=== PATIENT | male | born 1975 | race African-American/Black ===

== ENCOUNTER 2017-04-18 11:51 | Emergency (ER) | payer MEDICAID, OTHER ==
[~2017-04-18] VITALS: Ht 190.5 cm; Wt 109.0 kg
[2017-04-19 03:45] VITALS: BP 137/89
== END 2017-04-19 04:28 | disposition home or self-care (01) ==
LOC: ER 12:11
DX: R55 Syncope and collapse (principal); F17.200 Nicotine dependence, unspecified, uncomplicated
CPT/HCPCS: 93005; 99284; Z7610